=== PATIENT | male | born 1940 | race Caucasian/White ===

== ENCOUNTER 2016-02-18 15:54 | Emergency (ER) | payer MEDICARE, MEDICAID ==
--- NOTE | 2016-02-18 16:17 | Emergency Department Record ---
History of Present Illness - General Chief Complaint: Wound, check Stated Complaint: SORES ON BOTTOM Time Seen by Provider: 02/18/16 16:15 Source: Patient, RN notes reviewed - History of Present Illness Initial Comments: excoriated area of groin and yeast infection of the groin for three weeks and has seen me for this problem in the office and also at [facility] and is currently on diflucan and using nystatin powder - Related Data Home Medications Medication Instructions Recorded Confirmed Last Taken Allopurinol [Zyloprim] 100 mg PO DAILY 02/18/16 02/18/16 02/18/16 Amlodipine Besylate [Norvasc] 5 mg PO DAILY 02/18/16 02/18/16 02/18/16 Aspirin [Lo-Dose Aspirin EC] 81 mg PO DAILY 02/18/16 02/18/16 02/18/16 Fluconazole [Diflucan] 100 mg PO DAILY 02/18/16 02/18/16 02/18/16 Loratadine [Claritin] 10 mg PO DAILY 02/18/16 02/18/16 02/18/16 Metoprolol Succinate [Toprol Xl] 50 mg PO DAILY 02/18/16 02/18/16 02/18/16 Naproxen [Naprosyn] 500 mg PO Q12H 02/18/16 02/18/16 02/18/16 Nystatin [Nystatin] 1 applic TOP BID 02/18/16 02/18/16 02/18/16 Ranitidine HCl [Zantac] 150 mg PO BID 02/18/16 02/18/16 02/18/16 Simvastatin [Zocor] 10 mg PO QHS 02/18/16 02/18/16 02/17/16 Tamsulosin HCl [Flomax] 0.4 mg PO DAILY 02/18/16 02/18/16 02/18/16 Trazodone HCl [Desyrel] 50 mg PO QHS 02/18/16 02/18/16 02/18/16 Triamcinolone Acetonide [Nasacort] 1 spray EACH NARES DAILY 02/18/16 02/18/16 Allergies Allergy/AdvReac Type Severity Reaction Status Date / Time peanut [PEANUT] Allergy Unknown ANAPHYLAXIS Verified 02/18/16 16:09 Review of Systems Reviewed: No additional complaints except as noted below Constitutional: Reports: As per HPI. Denies: Chills, Fever, Malaise, Night sweats, Weakness, Weight change Eyes: Reports: As per HPI. Denies: Eye discharge, Eye pain, Photophobia, Vision change ENT: Reports: As per HPI. Denies: Congestion, Dental pain, Ear pain, Epistaxis , Hearing loss, Throat pain Respiratory: Reports: As per HPI. Denies: Cough, Dyspnea, Hemoptysis, Stridor, Wheezes Cardiovascular: Reports: As per HPI. Denies: Arrhythmia, Chest pain, Dyspnea on exertion, Edema, Murmurs, Orthopnea, Palpitations, Paroxysmal nocturnal dyspnea, Rheumatic Fever, Syncope Endocrine: Reports: As per HPI. Denies: Fatigue, Heat or cold intolerance, Polydipsia, Polyuria Gastrointestinal: Reports: As per HPI. Denies: Abdominal pain, Constipation, Diarrhea, Hematemesis, Hematochezia, Melena, Nausea, Vomiting Genitourinary: Reports: As per HPI. Denies: Dysuria, Frequency, Hematuria, Incontinence, Retention, Testicular pain, Testicular mass, Urgency Musculoskeletal: Reports: As per HPI. Denies: Arthralgia, Back pain, Gout, Joint swelling, Myalgia, Neck pain Skin: Reports: As per HPI. Denies: Bruising, Change in color, Change in hair/ nails, Lesions, Pruritus, Rash Neurological: Reports: As per HPI. Denies: Abnormal gait, Confusion, Headache, Numbness, Paresthesias, Seizure, Tingling, Tremors, Vertigo, Weakness Psychiatric: Reports: As per HPI. Denies: Anxiety, Auditory hallucinations, Depression, Homicidal thoughts, Suicidal thoughts, Visual hallucinations Hematological/Lymphatic: Reports: As per HPI. Denies: Anemia, Blood Clots, Easy bleeding, Easy bruising, Swollen glands Physical Exam - General General Appearance: Alert, Oriented x3, Cooperative, No acute distress - Head Head exam: Normal inspection - Eye Eye exam: Normal appearance, PERRL Pupils: Normal accommodation - ENT ENT exam: Normal exam, Mucous membranes moist, Normal external ear exam, Normal orophraynx, TM's normal bilaterally Ear exam: Normal external inspection. negative: External canal tenderness Nasal Exam: Normal inspection. negative: Discharge, Sinus tenderness Mouth exam: Normal external inspection, Tongue normal Teeth exam: Normal inspection. negative: Dental caries Throat exam: Normal inspection. negative: Tonsillar erythema, Tonsillar exudate - Neck Neck exam: Normal inspection, Full ROM. negative: Tenderness - Respiratory Respiratory exam: Normal lung sounds bilaterally. negative: Respiratory distress - Cardiovascular Cardiovascular Exam: Regular rate, Normal rhythm, Normal heart sounds - GI/Abdominal GI/Abdominal exam: Soft, Normal bowel sounds. negative: Tenderness - Rectal Rectal exam: Deferred - exam: Deferred - Extremities Extremities exam: Normal inspection, Full ROM, Normal capillary refill. negative: Tenderness - Back Back exam: Reports: Normal inspection, Full ROM. Denies: Muscle spasm, Rash noted, Tenderness - Neurological Neurological exam: Alert, Normal gait, Oriented X3, Reflexes normal - Psychiatric Psychiatric exam: Normal affect, Normal mood - Skin Skin exam: Other (yeast of buttock fold and excoriation and some excoriation of the scrotum , early ulcer ) Disposition Clinical Impression: Candidiasis, Dermatitis Disposition: Home, Self-Care Condition: (1) Good Instructions: Elia Tejeda (ED) Additional Instructions: follow up with Dr. Jeffers on tuesday stop powder and cream just use diflucan pills daily Forms: Patient Portal Access Time of Disposition: 16:49
== END 2016-02-18 16:55 | disposition home or self-care (01) ==
LOC: ER 15:54
DX: B37.2 Candidiasis of skin and nail (principal)
CPT/HCPCS: 99282